=== PATIENT | male | born 2005 ===

== ENCOUNTER 2024-05-17 21:03 | Emergency (ER) | payer OTHER, SELFPAY ==
--- NOTE | ~2024-05-17 | CT_ITS ---
CLINICAL HISTORY: Right lower abdominal pain CT abdomen and pelvis without contrast Comparison: None Findings: No consolidation or effusion. The gallbladder and solid organs are within normal limits. No renal stones. No left hydronephrosis or left hydroureter. 3 mm obstructing calculus present at the distal right ureter with mild upstream right hydroureter and mild right hydronephrosis. There is right perinephric and right periureteral fat stranding. No bowel obstruction, pneumoperitoneum, or pneumatosis. Pelvic contents unremarkable. Normal appendix. The bones are intact. IMPRESSION: 3 mm obstructing calculus present at the distal right ureter with mild upstream right hydroureter and mild right hydronephrosis. There is right perinephric and right periureteral fat stranding. This document has been electronically signed by: Bonilla Ying MD on 05/17/2024 23:13:56
[2024-05-17 21:07] VITALS: BP 142/83; PULSE 67; RESP 18; TEMP 36.9; O2SAT 99; BMI 28.7
[2024-05-17] MEDS: ondansetron HCL 4 MG/2 ML VIAL IVPUSH (21:27)
[2024-05-17 21:35] LABS: MANUAL DIFF FLAG NO
[2024-05-17 21:37] LABS: Basophils Absolute Auto 0.1 X10*3/uL (0.0-0.2); Basophils Percent Auto 0.4 % (0-2); Eosinophils Absolute Auto 0.1 X10*3/uL (0.0-0.4); Eosinophils Percent Auto 0.6 % (0-4); Hematocrit 44.2 % (42.0-52.0); Hemoglobin 15.3 g/dl (14.0-18.0); Imm Gran Abs Auto 0.05 X10*3/uL (0.00-0.03); Imm Gran Pct Auto 0.4 % (0.0-0.4); Lymphocytes Absolute Auto 2.5 X10*3/uL (1.2-4.9); Lymphocytes Percent Auto 17.9 % (20-40); Mean Corpuscular HGB Conc 34.6 g/dl (31.0-36.0); Mean Corpuscular Hemoglobin 29.1 pg (27.0-33.0); Mean Corpuscular Volume 84.2 fL (80.0-98.0); Monocytes Absolute Auto 0.9 X10*3/uL (0.1-1.2); Monocytes Percent Auto 6.8 % (2-11); Neutrophils Absolute Auto 10.3 x10*3/uL (2.0-8.3); Neutrophils Percent Auto 73.9 % (45-73); Platelet Count 325 X10*3/uL (160-400); Red Blood Count 5.25 X10*6/uL (4.60-5.80); Red Cell Distribution Width 11.9 % (11.0-16.0); White Blood Count 13.9 X10*3/uL (4.8-10.8)
[2024-05-17 21:50] LABS: Alanine Aminotransferase 37 U/L (0-40); Albumin Level 4.8 g/dL (3.5-5.0); Alkaline Phosphatase 80 U/L (39-117); Anion Gap 18 (12-20); Aspartate Amino Transferase 35 U/L (5-37); Bilirubin Total 0.6 mg/dL (0.0-1.0); Blood Urea Nitrogen 15 mg/dL (9-16); Calcium 10.2 mg/dL (8.4-10.2); Carbon Dioxide 22 mmol/L (22-29); Chloride 107 mmol/L (96-108); Creatinine Clr Calc Pharmacy 117.9; Estimated Glomerular Filt Rate > 60; Glucose Random 114 mg/dL (60-115); Potassium 3.9 mmol/L (3.3-5.1); Sodium 143 mmol/L (135-145); Total Protein 7.8 g/dL (6.5-8.0)
[2024-05-17] MEDS: 0.9 % Sodium Chloride 1,000 ML 999 ML IV (22:33)
[2024-05-17] MEDS: Ketorolac Tromethamine 30 MG/ML VIAL IVPUSH (22:33)
--- NOTE | 2024-05-17 22:50 | ED.GENADULT ---
HPI - General Adult General Chief complaint: Abdominal Pain Stated complaint: Severe Flank Pain Time Seen by Provider: 05/17/24 21:52 Source: patient, RN notes reviewed and old records reviewed Mode of arrival: EMS Limitations: no limitations History of Present Illness ED Provider: Sharon BILLINGSLEY narrative: 18-year-old male with no significant past medical history presents for evaluation of right lower abdominal pain. Patient reports the pain started suddenly about 2 hours prior to arrival. He has associated nausea and vomiting. His pain is waxing and waning in intensity At worst his pain is 10/10 He denies any history abdominal surgeries. No other complaints or concerns at this time Related Data Previous Rx's ?Medication ?Instructions ?Recorded ondansetron 4 mg disintegrating 4 mg PO Q8H PRN nausea and 05/18/24 tablet vomiting #20 tabs tamsulosin 0.4 mg capsule (Flomax) 0.4 mg PO DAILY #7 caps 05/18/24 tramadol 50 mg tablet 50 mg PO Q8H PRN severe pain 05/18/24 (scale score 7-10) #12 tabs Allergies Allergy/AdvReac Type Severity Reaction Status Date / Time No Known Allergies Allergy Verified 05/17/24 21:10 Review of Systems Constitutional: Constitutional: Denies body ache(s), Denies chills, Denies fatigue, Denies fever(s) and Denies frequent falls Eyes: Eyes: Denies blurry vision ENT: Denies vertigo Cardiovascular: Cardiovascular: Denies chest pain Respiratory: Respiratory: Denies cough Gastrointestinal: Gastrointestinal: Reports abdominal pain, Reports nausea and Reports vomiting Genitourinary: Genitourinary: Denies difficulty urinating and Denies dysuria Musculoskeletal: Musculoskeletal: Reports back pain Integumentary/Breasts: Skin/Breast: Denies rash Neurologic: Denies vertigo and Denies frequent falls Endocrine: Endocrine: Denies fatigue PMFSH Social History Social History Advance Directives: No Advance Directives Information Provided: No Physical Exam ED Vital Signs: Vital Signs - 24 hr 05/17/24 21:07 Temperature 98.5 F Pulse Rate 67 Respiratory Rate 18 Blood Pressure 142/83 H Pulse Oximetry 99 Oxygen Delivery Method Room Air BMI result Body Mass Index 28.7 Const General: healthy appearing, alert and awake Nutritional Appearance: well nourished Orientation/consciousness: patient oriented x3 HENMT Head: Yes normocephalic and Yes atraumatic Throat: Yes posterior oropharynx normal Eyes Eyelids: Yes eyelids normal Conjunctivae: conjunctivae normal Sclerae: sclerae normal Corneas: corneas normal Pupils: Equal, round and reactive pupils present EOM: EOMs intact bilaterally Neck Neck: Yes full ROM Resp Effort & Inspection: normal respiratory effort, able to speak in complete sentences and not labored Cardio Rate: regular rate Rhythm: regular rhythm GI Inspection: No distended Palpation (GI): Soft to palpation, not firm, nontender, no guarding and not rigid General: No CVA tenderness (Negative bilaterally) Back/Spine/Pelvis Back: No CVA tenderness (Negative bilaterally) Skin General skin exam: elasticity normal Neuro General: patient oriented x3 Cranial nerves: Yes Equal, round and reactive pupils present and Yes Bilaterally intact EOM present Cognition (Neuro): normal cognition Extrem Other: Moving all extremities well without any obvious deformities Course Reevaluation(s) Reevaluation #1: Patient's pain is well controlled with Toradol. His urinalysis is negative for UTI just shows hematuria. The CT scan shows a 3 mm stone obstructing at the right UVJ. I discussed this with the patient, he will be discharged with Flomax, tramadol, Zofran and urology follow-up Time: 00:00 Medications Administered Discontinued Medications Generic Name Dose Route Start Last Admin Trade Name Jassiq PRN Reason Stop Dose Admin Sodium Chloride 1,000 mls @ 999 mls/hr 05/17/24 22:00 05/17/24 22:33 Ns IV 05/17/24 23:00 999 mls/hr .Q1H1M CUBA Administration Ketorolac Tromethamine 30 mg 05/17/24 21:57 05/17/24 22:33 Ketorolac Tromethamine 30 Mg/Ml Vial IVPUSH 05/17/24 21:58 30 mg ONCE ONE Administration Ondansetron HCl 4 mg 05/17/24 21:18 05/17/24 21:27 Ondansetron Hcl 4 Mg/2 Ml Vial IVPUSH 05/17/24 21:19 4 mg ONCE ONE Administration Medical Decision Making Medical Decision Making MDM Narrative: 18-year-old male presents for sudden onset of right lower abdominal pain. He is not tender on palpation. His history exam is most consistent with a obstructive uropathy. His labs are reassuring that he does have a leukocytosis which may be reactive to his pain and vomiting. Plan for CT scan of the abdomen pelvis. He was treated with IV fluids, Toradol, Zofran. Differential Diagnosis Differential Diagnoses: The differential diagnosis associated with the presentation includes Obstructive uropathy Kidney stones UTI Cystitis Pyelonephritis Constipation Acute appendicitis less likely Lab Data MDM Lab Attestation statement: I reviewed the patient's lab results. Mild leukocytosis as documented above. No anemia, platelet count. No electrolyte abnormality 05/17/24 21:32 05/17/24 21:32 Labs: Lab Results 05/17/24 05/17/24 Range/Units 21:32 23:38 WBC 13.9 H (4.8-10.8) X10*3/uL RBC 5.25 (4.60-5.80) X10*6/uL Hgb 15.3 (14.0-18.0) g/dl Hct 44.2 (42.0-52.0) % MCV 84.2 (80.0-98.0) fL MCH 29.1 (27.0-33.0) pg MCHC 34.6 (31.0-36.0) g/dl RDW 11.9 (11.0-16.0) % Plt Count 325 (160-400) X10*3/uL MPV 9.0 L (9.4-12.4) fL Immature Gran % (Auto) 0.4 (0.0-0.4) % Neut % (Auto) 73.9 H (45-73) % Lymph % (Auto) 17.9 L (20-40) % [place] % (Auto) 6.8 (2-11) % Eos % (Auto) 0.6 (0-4) % Baso % (Auto) 0.4 (0-2) % Lymph # (Auto) 2.5 (1.2-4.9) X10*3/uL [place] # (Auto) 0.9 (0.1-1.2) X10*3/uL Eos # (Auto) 0.1 (0.0-0.4) X10*3/uL Baso # (Auto) 0.1 (0.0-0.2) X10*3/uL Abs Immat Gran (auto) 0.05 H (0.00-0.03) X10*3/uL Absolute Neuts (auto) 10.3 H (2.0-8.3) x10*3/uL Absolute Nucleated RBC 0.000 (0.0-0.012) X10*3/uL Nucleated RBC % (auto) 0.0 (0.0-0.2) /100WBC Sodium 143 (135-145) mmol/L Potassium 3.9 (3.3-5.1) mmol/L Chloride 107 (96-108) mmol/L Carbon Dioxide 22 (22-29) mmol/L Anion Gap 18 (12-20) BUN 15 (9-16) mg/dL Creatinine 1.03 (0.5-1.4) mg/dL Estim Creat Clear Calc 117.9 Estimated GFR > 60 Random Glucose 114 (60-115) mg/dL Calcium 10.2 (8.4-10.2) mg/dL Total Bilirubin 0.6 (0.0-1.0) mg/dL AST 35 (5-37) U/L ALT 37 (0-40) U/L Alkaline Phosphatase 80 (39-117) U/L Total Protein 7.8 (6.5-8.0) g/dL Albumin 4.8 (3.5-5.0) g/dL Urine Color Yellow Urine Appearance Clear Urine pH 7.0 (5.0-9.0) Ur Specific [place] 1.015 (1.005-1.025) Urine Protein Negative (Neg-Trace) mg/dL Urine Glucose (UA) Negative (Negative) mg/dL Urine Ketones Trace (Negative) mg/dL Urine Blood Moderate (2+) H (Negative) Urine Nitrite Negative (Negative) Ur Leukocyte Esterase Trace H (Negative) Urine RBC >20 H (0-2) /HPF Urine WBC 0-5 (0-5) /HPF Ur Squamous Epith Cells 0-2 (0-2) /HPF Urine Bacteria None Seen (None Seen) Hyaline Casts 0-2 (0-2) /LPF Radiology Impression Discussion of test interpretation with radiology: I have reviewed the radiologist's reading. Radiologist Impression: Findings: No consolidation or effusion. The gallbladder and solid organs are within normal limits. No renal stones. No left hydronephrosis or left hydroureter. 3 mm obstructing calculus present at the distal right ureter with mild upstream right hydroureter and mild right hydronephrosis. There is right perinephric and right periureteral fat stranding. No bowel obstruction, pneumoperitoneum, or pneumatosis. Pelvic contents unremarkable. Normal appendix. The bones are intact. IMPRESSION: 3 mm obstructing calculus present at the distal right ureter with mild upstream right hydroureter and mild right hydronephrosis. There is right perinephric and right periureteral fat stranding. This document has been electronically signed by: Bonilla Ying MD on 05/17/2024 23:13:56 Discharge Plan Discharge Clinical Impression: Acute unilateral obstructive uropathy Patient Disposition: Home, Self-Care Instructions: Kidney Stones (ED) Additional Instructions: You have a 3 mm kidney stone This is the cause of your pain. Take Flomax daily for the next 7 days. Take ibuprofen or Tylenol for pain Take tramadol for more severe breakthrough pain This may make you drowsy, do not drink alcohol or drive after taking it Follow-up with your primary doctor. You may follow-up with Dr. Connolly at the number provided your symptoms are not improving Prescriptions: New ondansetron 4 mg tablet,disintegrating 4 mg PO Q8H PRN (Reason: nausea and vomiting) Qty: 20 0RF tamsulosin [Flomax] 0.4 mg capsule 0.4 mg PO DAILY Qty: 7 0RF tramadol 50 mg tablet 50 mg PO Q8H PRN (Reason: severe pain (scale score 7-10)) Qty: 12 0RF Referrals: Alvin Connolly MD [Physician] - (Acute right obstructive uropathy) Stand Alone Forms: Work/School Release Print Language: Kazakh
--- NOTE | 2024-05-17 23:29 | PC.NURSE ---
received pt from Nal[facility] IVAN. pt currently with family member in room, fluids finishing up, pain down from a 10/10 to 2/10 after toradol. denies nausea at this time. plan to obtain UA
[2024-05-17 23:45] LABS: Appearance Urine Clear; Color Urine Yellow; Glucose Urine UA Negative (Negative); Leukocyte Esterase Urine Trace (Negative); Nitrite Urine Negative (Negative); Specific Gravity - Urine 1.015 (1.005-1.025); UMIC TRIGGER UACC YES; Urine Blood Moderate (2+) (Negative); Urine Ketones Trace mg/dL (Negative); Urine Protein Negative (Neg-Trace)
[2024-05-17 23:47] LABS: Bacteria Urine None Seen (None Seen); Hyaline Casts Urine 0-2 /LPF (0-2); RBC Urine >20 /HPF (0-2); Squamous Epithelial Cell Urine 0-2 /HPF (0-2); WBC Urine 0-5 /HPF (0-5)
[2024-05-18] MEDS: traMADoL HCL 50 MG TABLET PO (00:09)
[2024-05-18 00:11] VITALS: BP 128/68; PULSE 57; RESP 16; TEMP 37; O2SAT 99
== END 2024-05-18 00:23 | disposition home or self-care (01) ==
PROVIDERS: Emergency Provider Emergency Medicine Emergency Medical Services
DX: N13.8 Other obstructive and reflux uropathy (principal); R10.31 Right lower quadrant pain; R10.2 Pelvic and perineal pain; R11.2 Nausea with vomiting, unspecified; Z79.899 Other long term (current) drug therapy
CPT/HCPCS: 36415; 74176; 80053; 81001; 85025; 96361; 96374; 96375; 99285; J1885; J2405

== ENCOUNTER → 2024-05-17 21:57 | Outpatient (BNV) | payer OTHER, SELFPAY | PROVIDERS: Emergency Provider Emergency Medicine Emergency Medical Services; Visit Provider Radiology Diagnostic Radiology | DX: N20.1 Calculus of ureter (principal) | CPT/HCPCS: 74176 ==